=== PATIENT | male | born 1965 | race Caucasian/White ===

== ENCOUNTER 2018-08-24 18:25 | Emergency (ER) | payer BC ==
[2018-08-24 18:35] VITALS: BP 117/70
--- NOTE | 2018-08-24 18:47 | UC ---
Skin Complaint HPI - HPI Summary HPI Summary: 53 y/o male presents to the urgent care accompany by c/o a rash in the medial aspect of his left knee for the past 2 weeks. Pt unsure if he had a tick bite. Pt and concerned about Lyme since he was positive for Lyme Serology in 2010. He thinks he took full treatment for Lyme. states rash is almost gone, but a few days ago it was the classical bull's eye rash. Pt denies fever, knee pain, SOLANO, weakness, joint pain, abdominal pain, N/V/D, neck pain. He has been healthy. - History of Current Complaint Chief Complaint: UCSkin Time Seen by Provider: 08/24/18 18:45 Stated Complaint: TICK Hx Obtained From: Patient Onset/Duration: Gradual Onset, Lasting Weeks - 2 weeks rash, Resolved - resolving now since rash is almost gone Skin Exposure Onset/Duration: Weeks Ago - 2 weeks ago Timing: Constant Onset Severity: Mild Current Severity: Mild Pain Intensity: 0 Pain Scale Used: 0-10 Numeric Location: Discrete - medial aspect of the left knee Character: Redness Aggravating Factor(s): Nothing Alleviating Factor(s): Other - rash is resolving by itself Associated Signs & Symptoms: Positive: Rash - medial aspect of left knee w/ a bull's eye rash that is now almost resolving Related History: Possible Reaction to: Insect - Allergy/Home Medications Allergies/Adverse Reactions: Allergies Allergy/AdvReac Type Severity Reaction Status Date / Time No Known Allergies Allergy Verified 08/24/18 18:35 PMH/Surg Hx/FS Hx/Imm Hx Previously Healthy: Yes - Pt Denies PMHX - Surgical History Surgical History: Yes Surgery Procedure, Year, and Place: bowel resection. hernia - Family History Known Family History: Positive: Diabetes - Social History Occupation: Employed Full-time Lives: With Family Alcohol Use: Weekly Alcohol Amount: 2-3x week Substance Use Type: None Smoking Status (MU): Never Smoked Tobacco Review of Systems All Other Systems Reviewed And Are Negative: Yes Constitutional: Positive: Negative Skin: Positive: Rash - medial aspect of left knee w/ a resolving bull's eye rash Eyes: Positive: Negative ENT: Positive: Negative Respiratory: Positive: Negative Cardiovascular: Positive: Negative Gastrointestinal: Positive: Negative Genitourinary: Positive: Negative Motor: Positive: Negative Neurovascular: Positive: Negative Musculoskeletal: Positive: Negative Neurological: Positive: Negative Psychological: Positive: Negative Is Patient Immunocompromised?: No Physical Exam - Summary Physical Exam Summary: Vital Signs Reviewed: Yes General: well developed, well nourished male sitting in the examining table w/o any apparent distress. Eyes: Positive: Conjunctiva Clear - PERRLA, EOMI ENT: Positive: Normal ENT inspection, Hearing grossly normal, Pharynx normal, TMs normal Neck: Positive: Supple, Nontender, No Lymphadenopathy Respiratory: Positive: Chest nontender, Lungs clear, Normal breath sounds Cardiovascular: Positive: RRR, No Murmur, Pulses Normal Abdomen Description: Positive: Nontender, No Organomegaly, Soft. Negative: CVA Tenderness (R), CVA Tenderness (L) Bowel Sounds: Positive: Present Musculoskeletal: Positive: Strength Intact, ROM Intact, No Edema Neurological Exam: Normal Psychological Exam: Normal Skin: Positive: Medial aspect of left knee w/ a fade erythematous patch no central clearance observed. center w/ possible tick bite or insect bite, non tender to palpation. no swelling or drainage observed. Triage Information Reviewed: Yes Vital Signs: Initial Vital Signs Temp 98.1 F 08/24/18 18:32 Pulse 62 08/24/18 18:32 Resp 16 08/24/18 18:32 BP 117/70 08/24/18 18:32 Pulse Ox 99 08/24/18 18:32 Course/Dx - Course Course Of Treatment: 53 y/o male presents to the urgent care accompany by c/o a rash in the medial aspect of his left knee for the past 2 weeks. Pt unsure if he had a tick bite. Pt and concerned about Lyme since he was positive for Lyme Serology in 2010. He thinks he took full treatment for Lyme. states rash is almost gone, but a few days ago it was the classical bull's eye rash. Pt denies fever, knee pain, SOLANO, weakness, joint pain, abdominal pain, N/V/D, neck pain. He has been healthy. Hx obtained. Pt Pt is hemodynamycally stable. Vital : WNL. Pt w/ Medial aspect of left knee w/ a faded erythematous patch no central clearance observed. center w/ possible tick bite or insect bite, non tender to palpation. no swelling or drainage observed on examination. However insists the rash looked a few days ago like a classical bull's eye rash. I reviewed Pt's records and Lyme Serology in 2010 was positive, But IgM and IgG were negative. Possible false positive. Lyme serology ordered and a CBC and sent to lab. pt will be notified for further management. No treatment now since was is not clear. Rx Doxycycline PO . Pt advised to f/u with Dr Suarez or PCP if Lyme serology returns positive for further management. D/C instructions explained. Pt understood and agreed with plan of care. - Differential Diagnoses - Skin Complaint Differential Diagnoses: Abscess, Cellulitis, Contact Dermatitis, MRSA, Tick Born Illness, Other - sunburn - Diagnoses Provider Diagnosis: Rash Discharge - Sign-Out/Discharge Documenting (check all that apply): Patient Departure - D/C home All imaging exams completed and their final reports reviewed: No Studies - Discharge Plan Condition: Stable Disposition: HOME Patient Education Materials: Lyme Disease (ED) Referrals: Claudio Rios MD [Primary Care Provider] - 3 Days Daniela COFFEY,Tay Johnson [Medical Doctor] - If Needed Additional Instructions: 1- Since your Rt knee rash has completely resolved and you think it look like a bull's eye rash. a Lyme Serology and blood work was sent to the lab. You will be notified of results 2- If it is positive please F/u with DR Suarez or your PCP for further management - Billing Disposition and Condition Condition: STABLE Disposition: Home - Attestation Statements Provider Attestation: Per institutional requirements, I have reviewed the chart, however, I was not consulted specifically or made aware of this patient by the midlevel provider. I did not personally evaluate, interact with , or disposition this patient.
[2018-08-25 11:25] LABS: Hematocrit 44 % (42-52); Mean Corpuscular HGB Conc 34 g/dL (31-36); Mean Corpuscular Hemoglobin 32 pg (27-31); Mean Corpuscular Volume 92 fL (80-94); Platelet Count 150 10^3/uL (150-450); Red Blood Count 4.72 10^6 /uL (4.18-5.48); Red Cell Distribution Width 13 % (10-15); White Blood Count 4.8 10^3/uL (3.5-10.8)
[2018-08-25 11:37] LABS: ABS Eosinophils 0.2 10^3/ul (0-0.6); ABS Lymphocytes 1.3 10^3/ul (1.0-4.8); ABS Monocytes 0.4 10^3/ul (0-0.8); ABS Neutrophils 2.9 10^3/ul (1.5-7.7); Eosinophil % 4.1 %; Lymphocyte % 26.8 %; Nucleated Red Blood Cells % 0.1
--- NOTE | 2018-08-26 17:05 | UC ---
- Progress Note Progress Note: pt with + lymg screen pt with h/o lyme await serology for IGG/Igm no change at this time ljj Course/Dx - Diagnoses Provider Diagnoses: Rash Discharge - Sign-Out/Discharge Documenting (check all that apply): Post-Discharge Follow Up All imaging exams completed and their final reports reviewed: No Studies - Discharge Plan Condition: Stable Disposition: HOME Patient Education Materials: Lyme Disease (ED) Referrals: Daniela COFFEY,Tay Johnson [Medical Doctor] - If Needed Claudio Rios MD [Primary Care Provider] - 3 Days Additional Instructions: 1- Since your Rt knee rash has completely resolved and you think it look like a bull's eye rash. a Lyme Serology and blood work was sent to the lab. You will be notified of results 2- If it is positive please F/u with DR Suarez or your PCP for further management - Billing Disposition and Condition Condition: STABLE Disposition: Home
== END 2018-08-24 19:20 | disposition home or self-care (01) ==
LOC: UCEAST 18:25
DX: R21 Rash and other nonspecific skin eruption (principal)
CPT/HCPCS: 36415; 85025; 86617; 86618; 99211; G0463